=== PATIENT | male | born 1975 | race Caucasian/White ===

== ENCOUNTER 2023-03-08 08:41 | Emergency (ER) | payer OTHER ==
[2023-03-08 08:49] VITALS: BMI 30.7
[2023-03-08] MEDS ORDERED: IBUPROFEN 400 MG TABLET (FP) PO ONE ×2 (09:35→10:01)
[2023-03-08 10:33] VITALS: BP 134/77; PULSE 75; RESP 16; TEMP 98
[2023-03-08 11:22] LABS: THROAT:GRP A STREP NOT DETECTED (NOTDETECTED)
== END 2023-03-08 10:33 | disposition home or self-care (01) ==
LOC: JERFT 08:41
DX: J02.9 Acute pharyngitis, unspecified (principal); H92.02 Otalgia, left ear; R05.9 Cough, unspecified; H73.012 Bullous myringitis, left ear; Z20.822 Contact with and (suspected) exposure to COVID-19
CPT/HCPCS: 0241U-QW; 87651; 99283-25